=== PATIENT | female | born 1970 | race Caucasian/White ===

== ENCOUNTER → 2023-02-25 | Outpatient (REF) | payer BC ==
[2023-02-25 13:22] LABS: CPK CREATINE PHOSPHOKINASE 58 U/L (34-145)
[2023-02-25 13:23] LABS: IRON (FE) 69 UG/DL (50-170); MAGNESIUM LEVEL 2.2 MG/DL (1.8-2.4); PHOSPHORUS LEVEL 3.9 MG/DL (2.5-4.9)
[2023-02-25 13:24] LABS: C REACTIVE PROTEIN QUANTITATIV < 0.40 MG/DL (<1.0); TOTAL 25(OH) VITAMIN D 24.4 NG/ML (20.0-100.0)
[2023-02-25 13:25] LABS: VITAMIN B12 LEVEL 343 PG/ML (211-911)
== END ==
LOC: M SFHCRHEU 10:50
PROVIDERS: ATTEND Internal Medicine
DX: M54.9 Dorsalgia, unspecified (principal); M25.50 Pain in unspecified joint; M79.10 Myalgia, unspecified site